=== PATIENT | female | born 1990 | race Caucasian/White ===

== ENCOUNTER 2016-04-15 00:34 | Emergency (ER) | payer SELFPAY ==
[~2016-04-15] VITALS: Ht 162.6 cm; Wt 79.0 kg
[~2016-04-15 00:34] MED LIST: ACET325T33 PO; BACTDS PO; CEPH-443 PO; ONDA4TAB8 PO; RANI150T9 PO
[2016-04-15 00:43] VITALS: Ht 162.6 cm; Wt 79.0 kg
== END 2016-04-15 09:30 | disposition left against medical advice (07) ==
LOC: FTE 00:34
DX: Z53.21 Procedure and treatment not carried out due to patient leaving prior to being seen by health care provider (principal)

== ENCOUNTER 2016-04-22 21:42 | Emergency (ER) | payer OTHER ==
[~2016-04-22] VITALS: Ht 152.4 cm; Wt 63.0 kg
[2016-04-22 21:51] VITALS: Ht 152.4 cm; Wt 63.0 kg
[2016-04-22 23:37] LABS: ADD UMIC YES; URINE BILIRUBIN (Dip) 1+ (NEGATIVE); URINE BLOOD (Dip) 3+ (NEGATIVE); URINE COLOR YELLOW (YELLOW); URINE GLUCOSE (Dip) NEGATIVE (NEGATIVE); URINE KETONES (Dip) 40 (NEGATIVE); URINE LEUKOCYTE ESTERASE (Dip) NEGATIVE (NEGATIVE); URINE NITRITE (Dip) NEGATIVE (NEGATIVE); URINE TOTAL PROTEIN (Dip) 1+ (NEGATIVE); URINE UROBILINOGEN (Dip) 0.2 E.U./dL (0.1-1.0)
--- NOTE | 2016-04-22 23:38 | ERD ---
ER Documentation Chief Complaint Date/Time DATE: 04/22/16 TIME: 23:34 Chief Complaint Vaginal bleeding 9 weeks onset 2 hours active bleeding HPI Patient is a 25-year-old female who is who presents the ED with new onset of vaginal bleeding that started a few hours ago. She states that she is using 1 pad for her bleeding. States her LNMP was 02/11/2016. She is being followed by Dr. Elliott Skinner at [facility]. She denies pelvic pain. She denies abdominal pain, nausea, vomiting or diarrhea. She denies chest pain, shortness of breath or cough. She denies leg pain or swelling. She denies urinary symptoms such as dysuria urgency. No other symptoms. ROS All systems reviewed and are negative except as per history of present illness. Medications Home Meds Active Scripts Diphenhydramine Hcl (Benadryl Allergy) 25 Mg Tablet, 25 MG PO BID for 4 Days, TAB Prov:YESI JOHN PA-C 04/23/16 Metoclopramide* (Reglan*) 10 Mg Tablet, 10 MG PO Q6 Y for NAUSEA AND/OR VOMITING , #4 TAB Prov:YESI JOHN PA-C 04/23/16 Acetaminophen* (Tylenol*) 325 Mg Tablet, 2 TAB PO Q6 Y for PAIN AND OR ELEVATED TEMP, #30 TAB Prov:LIZETH BORGES PA-C 04/02/16 Cephalexin* (Keflex*) 500 Mg Capsule, 500 MG PO QID for 7 Days, CAP Prov:LIZETH BORGES PA-C 04/02/16 Ondansetron Hcl* (Zofran*) 4 Mg Tablet, 4 MG PO Q6H for NAUSEA AND/OR VOMITING, #30 TAB Prov:MICHELLE SRINIVASAN 06/23/15 Sulfamethoxazole-Trimethoprim* (Bactrim* DS) 800-160 Mg Tab, 1 TAB PO BID for 14 Days, TAB Prov:MICHELLE SRINIVASAN 06/23/15 Ranitidine Hcl* (Zantac*) 150 Mg Tablet, 150 MG PO BID Y for GASTROINTESTINAL UPSET, #30 TAB Prov:SPENCER PALACIO 04/03/15 Ondansetron Hcl* (Zofran*) 4 Mg Tablet, 4 MG PO Q8H Y for NAUSEA AND/OR VOMITING , #10 TAB Prov:SPENCER PALACIO 04/03/15 Allergies Allergies: Coded Allergies: No Known Allergy (Unverified , 04/03/15) PMhx/Soc Medical and Surgical Hx: pt denies Surgical Hx History of Surgery: No Anesthesia Reaction: No Hx Neurological Disorder: No Hx Respiratory Disorders: No Hx Cardiac Disorders: No Hx Psychiatric Problems: Yes (DEPRESSION) Hx Miscellaneous Medical Probl: Yes (fibroid tumors in left breast) Hx Alcohol Use: Yes (social) Hx Substance Use: Yes (marijuana) Hx Tobacco Use: No Smoking Status: Never smoker FmHx Family History: No coronary disease, No diabetes, No other Physical Exam Vitals Vital Signs Date Time Temp Pulse Resp B/P Pulse Ox O2 Delivery O2 Flow Rate FiO2 04/23/16 02:44 98.8 87 18 98/54 98 Room Air 04/22/16 21:51 98.3 102 20 105/63 98 Physical Exam GENERAL: Well-developed, well-nourished female. Appears in no acute distress. HEAD: Normocephalic, atraumatic. EYES: Pupils are equally reactive bilaterally. EOMs grossly intact. No conjunctival erythema. LUNG: Clear to auscultation bilaterally. No rhonchi, wheezing, rales or coarse breath sounds. HEART: Regular rate and rhythm. No murmurs, rubs or gallops. ABDOMEN: No scars, ecchymosis or rashes noted. Soft, nontender, and nondistended. Positive bowel sounds in all four quadrants. No rebound tenderness , no guarding. (-) McBurneys point tenderness. No CVA tenderness. BACK: No midline tenderness. Extremities: Equal pulses bilaterally. No peripheral clubbing, cyanosis or edema. No unilateral leg swelling. NEUROLOGIC: Alert and oriented. Moving all four extremities. 5/5 strength in all extremities. Normal speech. Steady gait. SKIN: Normal color. Warm and dry. No rashes or lesions. Capillary refill < 2 seconds Result Diagram: 04/23/16 0011 Results 24 hrs Laboratory Tests Test 04/22/16 23:30 04/23/16 00:11 Urine Bacteria OCCASIONAL Urine Bilirubin 1+ Urine Clarity CLEAR Urine Color YELLOW Urine Glucose NEGATIVE% Urine Hemoglobin 3+ Urine Ictotest NEGATIVE Urine Ketones 40 Urine Leukocyte Esterase NEGATIVE Urine Microscopic RBC 2-5/HPF Urine Microscopic WBC 2-5/HPF Urine Mucus FEW Urine Nitrite NEGATIVE Urine Specific [place] 1.020 Urine Squamous Epithelial Cells FEW Urine Total Protein 1+ Urine Urobilinogen 0.2 E.U./dL Urine pH 6.0 Basophils # 0.010^3/ul Basophils % 0.4% Beta HCG, Quantitative 426811.0mIU/ml Eosinophils # 0.110^3/ul Eosinophils % 1.3% Hematocrit 35.5% Hemoglobin 12.1g/dl Lymphocytes # 1.410^3/ul Lymphocytes % 14.9% Mean Corpuscular Hemoglobin 29.7pg Mean Corpuscular Hemoglobin Concent 34.2g/dl Mean Corpuscular Volume 87.1fl Mean Platelet Volume 8.7fl Monocytes # 0.810^3/ul Monocytes % 9.0% Neutrophils # 6.810^3/ul Neutrophils % 74.4% Nucleated Red Blood Cells # 0.010^3/ul Nucleated Red Blood Cells % 0.0/100WBC Platelet Count 55562^3/UL Red Blood Count 4.0710^6/ul Red Cell Distribution Width 13.9% White Blood Count 9.110^3/ul Procedures/MDM ER COURSE: I kept the patient and/or family informed of laboratory and diagnostic imaging results throughout the emergency room course. EKG, MONITORS, & DIAGNOSTIC IMAGING: [place] [id number] Radiology Main Line: [phone] DIAGNOSTIC IMAGING REPORT Patient: MARIBEL WOOD : 1990 Age: 25 Sex: F MR #: [id number] DOS: 04/22/16 2321 Ordering MD: YESI JOHN PA-C Location: [facility] Room/Bed: PROCEDURE: US OB. CLINICAL INDICATION: Vaginal bleeding. TECHNIQUE: Multiple sonographic images of the pelvis were obtained. Transabdominal and transvaginal views of the pelvis are available for review. The images were reviewed on a PACS workstation. COMPARISON: 04/02/2016 FINDINGS: A single live intrauterine is identified. heart rate is 176 beats per minute. The crown-rump length is 27.4 mm which corresponds to 9 weeks 4 days gestational age by ultrasound criteria. Estimated date of delivery is . An 11 x 3 mm subchorionic hemorrhage is identified. The ovaries were not visualized.. There is no adnexal mass or free fluid. IMPRESSION: 1. Single live intrauterine gestation of approximately 9 weeks 4 days. 2. Mild subchorionic hemorrhage. 3. Ovaries not identified. RPTAT: HMVK .Deep Rouse MD, MD Date Time Electronically viewed and signed by .Deep Rouse MD, MD on 04/23/2016 00:24 .K/ CC: YESI JOHN PA-C LAB INTERPRETATION: CBC showed no evidence of systemic infection or severe anemia. . UA showed no evidence of acute infection or hematuria. HCG 728885.0, rh: O+ MEDICAL DECISION MAKING: This is a 25-year-old who is presents with vaginal bleeding Vital signs were reviewed. Patient is afebrile. Patient is not hypoxic. Patient is not toxic or ill-appearing. Patient has a pulse of 102, likely related to her vomiting. Since ultrasound revealed a single live intrauterine gestation of approximately 9 weeks 4 days with mild subchorionic hemorrhage. Low suspicion for ovarian torsion, PID, tuboovarian abscess, ectopic , bowel obstruction, pyelonephritis,appendicitis, UTI, nephroliathisis, septic stone, obstructed stone. Low suspicion for ectopic , , molar , endometriosis, PID, placenta previa, placenta abruptia, preeclampsia , eclampsia, anemia, endometritis, cervicitis. Low suspicion for PE or DVT. She does not have shortness of breath or cough, denies recent travel, denies leg pain or swelling. Patient's blood pressure is 98/54. Patient is alert and oriented and is hemodynamically stable. Patient does not signs of distress. Denies dizziness. Patient states she has a baseline of lower blood pressure. I have low suspicion for vasovagal syncope or other emergent conditions. Patient is ready to be discharged home. DISCHARGE: At this time, patient is stable for discharge and outpatient management with no new complaints during the ER course. Patient was sent home with Tomasz. Patient has appointment with OB doctor tomorrow and will follow-up regarding her vomiting as well as her results.. Patient will be discharged home with instructions to recheck for new or worsening symptoms such as fever, nausea , weakness, LOC and to follow up with primary care in the next 1-2 days. Patient was advised to return to the ER for any new or worsening symptoms. Plan was discussed and patient and/or family understands and agrees. Home instructions were given. YESI JOHN PA-C Apr 22, 2016 23:37
[2016-04-22 23:48] LABS: ICTOTEST NEGATIVE (NEGATIVE)
[2016-04-22 23:49] LABS: BACTERIA,URINE OCCASIONAL; MUCUS,URINE FEW; SQUAMOUS EPITHELIAL CELL,UR FEW
--- NOTE | 2016-04-23 00:25 | RADRPT ---
PROCEDURE: US OB. CLINICAL INDICATION: Vaginal bleeding. TECHNIQUE: Multiple sonographic images of the pelvis were obtained. Transabdominal and transvagin al views of the pelvis are available for review. The images were reviewed on a PACS workstation. COMPARISON: 04/02/2016 FINDINGS: A single live intrauterine is identified. heart rate is 176 beats per minute. The cr own-rump length is 27.4 mm which corresponds to 9 weeks 4 days gestational age by ultrasound criteri a. Estimated date of delivery is 11/21/2016. An 11 x 3 mm subchorionic hemorrhage is identified. The ovaries were not visualized.. There is no adnexal mass or free fluid. IMPRESSION: 1. Single live intrauterine gestation of approximately 9 weeks 4 days. 2. Mild subchorionic hemorrhage. 3. Ovaries not identified. RPTAT: HMVK .Deep Rouse MD, Date Time Electronically viewed and signed by .Deep Rouse MD, MD on 04/23/2016 00:24 .K/
[2016-04-23 00:54] LABS: BASOPHILS % 0.4 % (0.0-2.0); EOSINOPHILS # 0.1 10^3/ul (0.0-0.5); EOSINOPHILS % 1.3 % (0.0-7.0); HEMATOCRIT 35.5 % (37.0-47.0); HEMOGLOBIN 12.1 g/dl (12.0-16.0); LYMPHOCYTES # 1.4 10^3/ul (0.8-2.9); LYMPHOCYTES % 14.9 % (15.0-51.0); MEAN CORPUSCULAR HEMOGLOBIN 29.7 pg (29.0-33.0); MEAN CORPUSCULAR HGB CONC 34.2 g/dl (32.0-37.0); MEAN CORPUSCULAR VOLUME 87.1 fl (82.0-101.0); MEAN PLATELET VOLUME 8.7 fl (7.4-10.4); MONOCYTE # 0.8 10^3/ul (0.3-0.9); NEUTROPHIL # 6.8 10^3/ul (1.6-7.5); NEUTROPHILS % 74.4 % (39.0-77.0); PLATELET COUNT 274 10^3/UL (140-440); RED BLOOD COUNT 4.07 10^6/ul (4.20-5.40); RED CELL DISTRIBUTION WIDTH 13.9 % (11.5-14.5); UNCORRECTED WBC 9.1 10^3/ul (4.8-10.8); WHITE BLOOD COUNT 9.1 10^3/ul (4.8-10.8)
[2016-04-23 01:04] LABS: CONDITION 1
[2016-04-23] MEDS ORDERED: METO10TA92 PO (01:45)
[2016-04-23] MEDS ORDERED: DIPH25TA68 PO (01:46)
[2016-04-23 02:44] VITALS: BP 98/54; PULSE 87; RESP 18; TEMP 98.8
== END 2016-04-23 02:56 | disposition home or self-care (01) ==
LOC: FTE 21:42
DX: O20.9 Hemorrhage in early pregnancy, unspecified (principal); Z3A.09 9 weeks gestation of pregnancy
CPT/HCPCS: 36415; 76801; 81001; 84702; 85025; 86900; 86901; Z7502; 81003

== ENCOUNTER 2018-01-31 22:46 | Emergency (ER) | END 2018-02-01 00:59 | disposition home or self-care (01) ==

== ENCOUNTER 2018-02-24 02:51 | Emergency (ER) | END 2018-02-24 04:48 | disposition home or self-care (01) ==